=== PATIENT | male | born 1965 | race Caucasian/White ===

== ENCOUNTER → 2020-05-17 | Outpatient (CLI) | payer BC, OTHER ==
[2020-05-17 08:19] LABS: HEMOGLOBIN 15.4 gm/dl (14.0-17.5); RED BLOOD COUNT 4.99 M/UL (4.20-5.50); WHITE BLOOD COUNT 5.6 K/UL (4.5-11.0)
[2020-05-17 09:03] LABS: BUN/CREATININE RATIO 10 (0-10)
== END ==
LOC: LAB 07:41
PROVIDERS: Nurse Practitioner
DX: E78.2 Mixed hyperlipidemia (principal); K21.01 Gastro-esophageal reflux disease with esophagitis, with bleeding; I10 Essential (primary) hypertension; Z12.5 Encounter for screening for malignant neoplasm of prostate
CPT/HCPCS: 36415; 80048; 80061; 84153; 85027